=== PATIENT | female | born 1990 | race Caucasian/White ===

== ENCOUNTER 2021-06-21 07:57 | Inpatient (IN) | payer BC, MEDICAID ==
[~2021-06-21 07:57] MED LIST: Scopolamine 1.5 MG Transdermal Patch TOP SCH
[2021-06-21] MEDS ORDERED: Celecoxib 200 MG Cap PO ONE (08:00)
[2021-06-21] MEDS ORDERED: Acetaminophen 500 MG Tab PO ONE (08:00)
[2021-06-21] MEDS ORDERED: Dextrose 5%-Lactated Ringers 1,000 ML IV SCH ×2 (08:15→16:30)
[2021-06-21] MEDS ORDERED: cefOXitin 2 GM in Sodium Chloride 0.9% 50 ML IV ONE (09:00)
[2021-06-21] MEDS ORDERED: fentaNYL 250 MCG/5 ML SDV ONE ×2 (09:09→11:33)
[2021-06-21] MEDS ORDERED: Succinylcholine 200 MG/10 ML MDV ONE (09:10)
[2021-06-21] MEDS ORDERED: Rocuronium 50 MG/5 ML Vial ONE ×2 (09:10→11:52)
[2021-06-21] MEDS ORDERED: Neostigmine Methylsulfate 1 MG/ML 5 ML Syringe ONE (09:10)
[2021-06-21] MEDS ORDERED: Propofol 200 MG/20 ML SDV ONE (09:10)
[2021-06-21] MEDS ORDERED: Glycopyrrolate 0.2 MG/ML 5 ML MDV ONE (09:10)
[2021-06-21] MEDS ORDERED: Ondansetron 4 MG/2 ML SDV ONE (09:10)
[2021-06-21] MEDS ORDERED: Lactated Ringers 1,000 ML ONE (09:10)
[2021-06-21] MEDS ORDERED: Dexamethasone 4 MG/ML SDV ONE (09:10)
[2021-06-21] MEDS ORDERED: cefOXitin 2 GM Vial ONE (09:20)
[2021-06-21] MEDS ORDERED: Ketamine 20 MG in Sodium Chloride 0.9% 19.8 ML IV SCH (09:30)
[2021-06-21] MEDS ORDERED: Ketamine 500 MG/5 ML MDV IV SCH (09:30)
[2021-06-21] MEDS ORDERED: Labetalol 20 MG/4 ML Syringe ONE (12:08)
[2021-06-21] MEDS ORDERED: fentaNYL 100 MCG/2 ML SDV IVPUSH ONE (14:58)
[2021-06-21] MEDS ORDERED: hydrOXYzine HCL 100 MG/2 ML SDV IM ONE (14:58)
[2021-06-21] MEDS ORDERED: Cyclobenzaprine 10 MG Tab PO PRN (16:20)
[2021-06-21] MEDS ORDERED: Lactated Ringers 1,000 ML IV SCH (16:30)
[2021-06-21] MEDS ORDERED: Calcium Gluconate 10% 1 GM/10 ML SDV IVPUSH PRN (17:00)
[2021-06-21] MEDS ORDERED: diphenhydrAMINE 50 MG/ML SDV IVPUSH PRN (17:00)
[2021-06-21] MEDS ORDERED: Metoclopramide 10 MG/2 ML SDV IVPUSH PRN (17:00)
[2021-06-21] MEDS ORDERED: HYDROmorphone 1 MG/ML Syringe IV PRN (17:00)
[2021-06-21] MEDS ORDERED: Labetalol 20 MG/4 ML Syringe IVPUSH PRN (17:00)
[2021-06-21] MEDS ORDERED: traMADol 50 MG Tab PO PRN (17:00)
[2021-06-21] MEDS ORDERED: Acetaminophen 500 MG Tab PO PRN (17:00)
[2021-06-21] MEDS ORDERED: hydrOXYzine HCL 100 MG/2 ML SDV IM PRN (17:00)
[2021-06-21] MEDS ORDERED: Ondansetron 4 MG/2 ML SDV IVPUSH PRN (17:00)
[2021-06-21] MEDS ORDERED: HYDROmorphone 0.5 MG/0.5 ML Syringe IVPUSH PRN (17:00)
[2021-06-21] MEDS ORDERED: Pantoprazole 40 MG Vial IVPUSH SCH (17:00)
[2021-06-21] MEDS ORDERED: oxyCODONE 5 MG Tab PO PRN (17:00)
[2021-06-21] MEDS: MVI, Adult with Vitamin K 10 ML, Thiamine 200 MG, Zinc/Copper/Manganese/Selenium 1 ML i... IV SCH ×4 (17:29)
[2021-06-21] MEDS: cefOXitin 2 GM in Sodium Chloride 0.9% 50 ML IV SCH ×2 (17:29→22:46)
[2021-06-21] MEDS: Acetaminophen 500 MG Tab PO SCH (18:55)
[2021-06-21] MEDS: Heparin Sodium 5,000 Units/ML Vial SUBCUT SCH (19:32)
[2021-06-21] MEDS: Insulin Lispro 100 Unit/ML 3 ML KwikPen SUBCUT SCH (21:36)
[2021-06-22] MEDS: Acetaminophen 500 MG Tab PO SCH ×3 (01:30→18:20)
[2021-06-22] MEDS ORDERED: Iopamidol 612 MG/ML 50 ML SDV PO STA (03:45)
[2021-06-22] MEDS: Insulin Lispro 100 Unit/ML 3 ML KwikPen SUBCUT SCH ×4 (04:56→22:02)
[2021-06-22] MEDS: cefOXitin 2 GM in Sodium Chloride 0.9% 50 ML IV SCH ×4 (05:11→22:04)
[2021-06-22] MEDS ORDERED: hydrOXYzine HCl 25 MG Tab PO PRN (06:39)
[2021-06-22] MEDS ORDERED: Ondansetron 4 MG Tab.DIS PO PRN (06:39)
[2021-06-22] MEDS: Heparin Sodium 5,000 Units/ML Vial SUBCUT SCH ×2 (08:16→19:43)
[2021-06-22] MEDS: Celecoxib 200 MG Cap PO SCH ×2 (08:25→22:02)
[2021-06-22] MEDS ORDERED: Metoprolol Succinate 50 MG Tab.ER PO SCH (09:00)
[2021-06-22] MEDS ORDERED: SCOPOLAMINE PATCH CHECK TOP SCH (09:00)
[2021-06-22] MEDS: Lactated Ringers 1,000 ML IV SCH (10:16)
--- NOTE | 2021-06-22 12:03 | PN ---
DATE OF SERVICE: 06/22/2021 SUBJECTIVE: Maggie is postop day 1. Pain has been controlled with protocol. Oral intake 310, output 2000. EDMUNDO drain put out 115 mL of a light red drainage. Last blood sugar was 167. She has been up, sitting in the chair, has not used her incentive spirometer as of yet. Last temperature was 99.2. REVIEW OF SYSTEMS: Remainder of review of systems negative for any pertinent positives or negatives. OBJECTIVE: GENERAL: Maggie Bear is a 31-year-old female. She is alert and orientated. VITAL SIGNS: TPR is 99.2, 89, 18. Blood pressure is 153/86. HEENT: Negative. NECK: Supple. HEART: Regular rate and rhythm. LUNGS: Clear. ABDOMEN: Dressings dry and intact. Abdominal binder is on. EXTREMITIES: Without peripheral edema. ASSESSMENT: Diagnostic laparoscopy with: 1. Laparoscopic duodenal switch. 2. Needle liver biopsy. 3. Repair of paraesophageal hernia. 4. Excision of mediastinal lipoma. POSTOPERATIVE DIAGNOSES: Morbid obesity, hepatomegaly, diaphragmatic hernia, and mediastinal lipoma. Date of procedure: 06/21/2021. Surgeon: Efraín Tomas MD PLAN: 1. Discontinue Grajeda catheter. 2. Decrease IV of lactated Ringer's to 100 mL per hour. 3. Discontinue D5LR IV. 4. Dressing off, may shower. 5. Step 2 gastric bypass diet without cereal. 6. Communication order, 3 med cups per hour 1 every 20 minutes. 7. Atarax 50 mg q.4 hours p.r.n. pain. 8. Discontinue continuous pulse ox. 9. Encourage use of incentive spirometer 10 times every hour while awake. Of note, patient has not used this yet. 10.We will evaluate p.r.n. or in a.m. Meg Jamison PA-C /[id number]
--- NOTE | 2021-06-22 13:21 | OR ---
DATE OF PROCEDURE: 06/22/2021 SURGEON: Efraín Tomas MD PREOPERATIVE DIAGNOSIS: Morbid obesity. POSTOPERATIVE DIAGNOSES: 1. Morbid obesity. 2. Marked hepatomegaly. 3. Paraesophageal diaphragmatic hernia. 4. Mediastinal lipoma. OPERATIVE PROCEDURE: Diagnostic laparoscopy with: 1. Laparoscopic duodenal switch (19925). 2. Fransico-Cut needle liver biopsy (82530). 3. Repair of paraesophageal diaphragmatic hernia (18683). 4. Excision of mediastinal lipoma (17886). ANESTHESIA: General. CROSS TIE MAKER: Meg Jamison PA-C INDICATIONS FOR PROCEDURE: This is a 31-year-old female presenting with longstanding morbid obesity and increasingly significant comorbidities. After preoperative evaluation and discussion, she wished to proceed with a duodenal switch. Potential risks of the procedure including bleeding, infection, injury to underlying viscera, problems with leaks from various staple lines and/or anastomosis as well as possibility of cardiopulmonary, septic, or hemorrhagic complications leading to were all discussed and the patient wishes to proceed. DETAILS OF PROCEDURE: The patient was taken to the operating room, and after general endotracheal anesthesia was induced, was placed in a lithotomy position. Grajeda catheter was inserted and the abdomen prepped and draped. A 20 cm inferior and to the left of the xiphoid process a transverse incision was made and the peritoneal cavity entered under direct vision with an Optiview trocar and inflated to 15 mmHg pressure with CO2. Laparoscope was then reinserted. No underlying trocar insertion site injuries were seen. Following this, bilateral transversus abdominis plane blocks were placed and 6 additional trocars were placed across the upper and mid abdomen. The patient was noted to have moderate hepatomegaly with the liver being quite densely fatty infiltrated. Fransico-Cut needle biopsies were obtained from the left lobe of the liver. Minimal bleeding from the biopsy sites was controlled with electrocautery. The liver was then retracted anteriorly. The patient was noted to have moderate-sized paraesophageal diaphragmatic hernia with prolapse of perigastric fat and some gastric fundus in the plane anterior to the course of the esophagus. This was reduced. During the course of the dissection, mediastinal lipoma was encountered and this was excised to facilitate a more adequate repair of the crura which was approximated anteriorly with some 0 Ethibond sutures reinforced with PTFE pledgets. The stomach along the greater curvature was then divided away from the omentum with Harmonic scalpel. This continued proximally to include the highest and posterior short gastric vessels and some additional attachments to the gastric fundus and the area of left helena of the diaphragm was then freed up as well to avoid any cul-de-sac of stomach being left in that position. Pyloric sphincter was then identified, marked with electrocautery and division of the omentum in a distal direction was then began and continued 4 cm distal to the pylorus. This allowed a nice adequate freeing up of the proximal duodenum. The small bowel was then identified at the ileocecal valve and walked back 300 cm distal to that point and was brought up to the area where the duodenum would be divided. This appeared to come up with minimal amount of tension, and at that point, reasonable to proceed with the duodenal ileostomy phase of the procedure. The sleeve gastrectomy markings were then made with electrocautery across the antrum beginning 6 cm proximal to the pylorus and then underneath the incisura angularis with care to avoid overtightening in that area. The first 3 firings of the stapler were non- reinforced black loads. A 40-American chest tube was then placed per Anesthesia orally into the stomach and then positioned along the lesser curvature of the stomach. The remainder of the sleeve gastrectomy was accomplished with a combination of reinforced black and purple loads, and at that point, the resectional portion of the procedure was being satisfactorily completed. The dissection behind the duodenum within 4 cm distal to the pylorus was then accomplished and the duodenum then divided there with a reinforced JUSTIN purple load. One additional firing of the JUSTIN gaviria load superior to the duodenum and at the level of the pylorus was then made which allowed a drop down of the duodenum for tension free duodenal ileostomy. Stay sutures between the ileum ileocecal junction was then placed to the superior and inferior aspects of divided duodenum using a 3-0 Vicryl stitch and one additional stitch structures with inferior in order to the lower of the decision was made to help manipulate the anastomosis. It was felt that the mesentery of the small bowel was such that the initial duodenal ileostomy would be safe and secondary anastomosis with additional manipulation what appeared to put the primary duodenal ileostomy at risk for a leak or ischemic changes and therefore the second portion of this duodenal ileostomy area was deferred, i.e., the Josselin-en-Y component which could be completed in the event that this is required at a later time postoperatively. A small opening in the inferior aspect of the duodenum and adjacent to the ileum was then made and the 30 mm JUSTIN gaviria load was placed with one arm in each of those structures and then fired. This created a supposedly satisfactory duodenal ileostomy initially. Three stay sutures, one superiorly, one inferiorly, and the one in the middle portion of the common opening were then made. This was then elevated and the common opening then closed off with a JUSTIN purple load. The secondary closure of the staple line was then reinforced at the seromuscular level with some 3-0 Vicryl stitches. The area was then bathed with some antibiotic-containing saline solution along the duodenal ileostomy and then also along the length of the sleeve gastrectomy focusing on the area of the esophagogastric junction. Omentum was then tacked up to the area around the esophagogastric junction with some 3-0 Vicryl sutures as well. Two additional sutures were then placed between the ileum proximal to the duodenal ileostomy and one to the lower aspect of the antrum and one to the omentum just inferior to that to create an angulation of that that was taking some additional tension off the anastomosis and directing the anterior contents in the distal directions. The chest tube at that point had been removed and the balloon catheter was placed in the sleeve gastrectomy. This was then inflated and air was noted to cross through the duodenal ileostomy nicely with no evidence of leaks staple line. No further problems noted. The gastric specimen was retrieved through the left lateral trocar site. Single Logan-Cornell drain was taken out through the left lateral trocar site and positioned adjacent to the esophagogastric junction and from there up into the splenic fossa. The trocars were then sequentially removed and the peritoneal cavity deflated. The incision was closed with some 4-0 Vicryl skin stitch as was used for the drain as well and the patient was taken to the recovery room in satisfactory condition. Physician data entry assistant, Meg Jamison, played an essential role in assisting in this case helping to position the patient, retract structures as needed, as well as suturing and cutting sutures as indicated. Her presence improved the patient's safety and decreased operative time. Efraín Tomas MD Job #: [id number]
[2021-06-22] MEDS: MVI, Adult with Vitamin K 10 ML, Thiamine 200 MG, Zinc/Copper/Manganese/Selenium 1 ML i... IV SCH ×4 (16:24)
[2021-06-22] MEDS ORDERED: Pantoprazole 40 MG Delayed-Release Granules 1 Packet PO SCH (16:30)
[2021-06-23] MEDS: Acetaminophen 500 MG Tab PO SCH (02:39)
[2021-06-23] MEDS: Lactated Ringers 1,000 ML IV SCH (02:42)
[2021-06-23] MEDS: Insulin Lispro 100 Unit/ML 3 ML KwikPen SUBCUT SCH (04:15)
[2021-06-23] MEDS: cefOXitin 2 GM in Sodium Chloride 0.9% 50 ML IV SCH (05:45)
[2021-06-23] MEDS: Heparin Sodium 5,000 Units/ML Vial SUBCUT SCH (07:25)
[2021-06-23] MEDS ORDERED: Cyanocobalamin (Vitamin B12) 1,000 MCG/ML SDV IM ONE (09:00)
--- NOTE | 2021-06-23 10:20 | CR ---
[facility] HISTORY: Postbariatric surgery FINDINGS: Patient swallowed water-soluble contrast. Upright views of the abdomen show no evidence of extravasation or obstruction. There is a surgical drain in the left upper quadrant IMPRESSION: Status post bariatric surgery No extravasation or obstruction seen
--- NOTE | 2021-06-23 10:53 | DISCH ---
ADMISSION DIAGNOSES: 1. Morbid obesity, body mass index 56.30. 2. Diabetes type 2. DISCHARGE DIAGNOSES: Diagnostic laparoscopy with: 1. Laparoscopic duodenal switch. 2. Fransico-Cut needle liver biopsy. 3. Repair of paraesophageal diaphragmatic hernia. 4. Excision of mediastinal lipoma. POSTOPERATIVE DIAGNOSES: 1. Morbid obesity. 2. Marked hepatomegaly. 3. Paraesophageal diaphragmatic hernia. 4. Mediastinal lipoma. HISTORY: Maggie is a 31-year-old female, presenting with longstanding history of morbid obesity and increasingly significant comorbidities. After preoperative evaluation and discussion of possible risks and possible complication, the patient wishes to proceed with surgical procedure. HOSPITAL COURSE: Maggie had her surgery on 06/22/2021. She had no operative complications. On postoperative day 1, upper GI was normal. She was started on a step 2 gastric bypass diet. Her activity was good. She received dietary instruction. Vital signs remained stable. Oral intake 1750. Urine output 1600. EDMUNDO drain put out 120 mL of a light pink drainage. Pain was controlled per energy protocol. On postoperative day 2, Maggie was able to be discharged to home in stable condition. PHYSICAL EXAMINATION: GENERAL: Maggie is a pleasant 31-year-old female. VITAL SIGNS: Height 5 feet 10.5 inches, weight is 383 pounds, BMI is 54.2. TPR 93.9, 86, 18, blood pressure 144/87. HEENT: Negative. NECK: Supple. HEART: Regular rate and rhythm. LUNGS: Clear. ABDOMEN: Dressings dry and intact. EDMUNDO drain intact. This will be removed. Abdominal binder is on. EXTREMITIES: Without peripheral edema. DISPOSITION: Discharged to home. CONDITION: Stable and improving. FOLLOWUP: Appointment with Meg Jamison PA-C, at [facility] on 07/04/2021 at 8:30 a.m. HOME MEDICATIONS: 1. Tylenol 1000 mg q.6 hours scheduled for a couple of days, then go to p.r.n. 2. Celebrex 200 mg p.o. b.i.d. 3. Zofran ODT 4 mg p.o. q.4 hours p.r.n. nausea, #30, 1 refill. 4. Toprol-XL 50 mg p.o. daily scheduled. 5. To hold all vitamins and supplements until after first postop appointment. DIET: Step 2 gastric bypass diet for 1 month until 07/21/2021. ACTIVITY: No lifting greater than 10 pounds for 2 weeks. OTHER ACTIVITY: Walk 6 times daily inside your home. Driving: Do not drive for 1 week. Shower/bathing: May shower. Keep operative site clean and dry. Wear abdominal binder for 2 weeks and then as tolerated. Notify provider if any fever, increased pain, swelling, redness, drainage, nausea, or vomiting. SPECIAL INSTRUCTIONS: 1. Use incentive spirometer 10 times every hour while awake for 1 week. 2. Check blood sugars 3 times a day and bring the record of blood sugars to clinic appointment. /[id number]
== END 2021-06-23 09:05 | disposition home or self-care (01) | DRG 403 ==
LOC: JP.SDSSCHI 07:57 → JP.SDS 07:57 → EDSTATUS 12:15 → JP.MS 14:30
PROVIDERS: ADMIT Surgery; ATTEND Surgery
PROC: 0D194ZB Bypass Duodenum to Ileum, Percutaneous Endoscopic Approach (ICD-10-PCS; principal; 2021-06-22)
PROC: 0FB24ZX Excision of Left Lobe Liver, Percutaneous Endoscopic Approach, Diagnostic (ICD-10-PCS; 2021-06-22)
PROC: 0BQT4ZZ Repair Diaphragm, Percutaneous Endoscopic Approach (ICD-10-PCS; 2021-06-22)
PROC: 0JB63ZZ Excision of Chest Subcutaneous Tissue and Fascia, Percutaneous Approach (ICD-10-PCS; 2021-06-22)
DX: E66.01 Morbid (severe) obesity due to excess calories (principal); E11.9 Type 2 diabetes mellitus without complications; R16.0 Hepatomegaly, not elsewhere classified; K44.9 Diaphragmatic hernia without obstruction or gangrene; D17.4 Benign lipomatous neoplasm of intrathoracic organs; H54.7 Unspecified visual loss; Z98.51 Tubal ligation status; Z68.43 Body mass index [BMI] 50.0-59.9, adult; Z98.890 Other specified postprocedural states; Z79.899 Other long term (current) drug therapy
CPT/HCPCS: 36415; 74240; 74240-26; 82947; 83880; 84703; 86850; 86900; 86901; 88304; 88307; 88313; 94762; A9270-GY; C9113; J0171; J0330; J0694; J1100; J1644; J1815; J1815-GY; J2405; J2704; J2710; J2795; J3010; J3410; J3411; J3475; J3490; J7050; J7120; J7121; Q9967